=== PATIENT | female | born 1990 ===

== ENCOUNTER 2025-09-17 11:55 | Outpatient (CLI) | payer BC, SELFPAY | END 2025-09-17 11:56 | disposition home or self-care (01) | LOC: NFLDREF 11:57 | PROVIDERS: Visit Provider Obstetrics & Gynecology | DX: O46.91 Antepartum hemorrhage, unspecified, first trimester (principal) | CPT/HCPCS: 84702; 86850; 86900; 86901 ==

== ENCOUNTER 2025-09-21 08:49 | Outpatient (CLI) | payer BC, SELFPAY ==
--- NOTE | 2025-09-21 09:15 | CRLHL7_ITS ---
For Patients: As a result of the Century Cures Act, medical imaging exams and procedure reports are released immediately into your electronic medical record. You may view this report before your referring provider. If you have questions, please contact your health care provider. OB ULTRASOUND LESS THAN 14 WEEKS CLINICAL HISTORY: Viability. Cramping and light bleeding. TECHNIQUE: Grayscale and color Doppler ultrasound of the uterus and ovaries from a transabdominal and transvaginal approach. Transvaginal ultrasound of the pelvis was performed to better evaluate the genitourinary organs such as the ovaries and/or endometrium. FINDINGS: Imaging: TV. LMP: 08/10/2025. JACQUELYN by LMP: 05/17/2026. GA: 6 weeks 0 days. Previous US: No. CRL: Not visualized at this time FHR: N/A GEST SAC: 1.3 cm, appears WNL YOLK SAC: 3.3 mm, appears WNL. RIGHT OV: 2.8 x 1.6 x 1.3 cm LEFT OV: 3.4 x 1.6 x 2.5 cm. CL IMPRESSION: 1. Intrauterine gestational sac measures 1.3 cm, 6 weeks 1 day. Yolk sac is present measuring 3.3 mm. No pole. Follow-up in 11-14 days recommended. 2. Corpus luteal cyst left ovary measures 1.4 x 1.1 x 1.2 cm. Qasim Nelson M.D. Diagnostic Radiologist [email or web address] Transcribed: 2:31 am DW/Dictated by: Qasim Nelson MD @ 09/21/2025 1:49:00 PM (Electronically Signed)
== END 2025-09-21 08:50 | disposition home or self-care (01) ==
LOC: US 08:49
PROVIDERS: Visit Provider Obstetrics & Gynecology
DX: O20.9 Hemorrhage in early pregnancy, unspecified (principal); O34.81 Maternal care for other abnormalities of pelvic organs, first trimester; N83.12 Corpus luteum cyst of left ovary; Z3A.01 Less than 8 weeks gestation of pregnancy
CPT/HCPCS: 76817

== ENCOUNTER 2025-10-09 14:42 | Outpatient (CLI) | payer BC, SELFPAY ==
--- NOTE | 2025-10-09 15:00 | CRLHL7_ITS ---
For Patients: As a result of the Century Cures Act, medical imaging exams and procedure reports are released immediately into your electronic medical record. You may view this report before your referring provider. If you have questions, please contact your health care provider. OBSTETRICAL ULTRASOUND TRANSVAGINAL CLINICAL INDICATION: Follow-up dating and viability. LMP: 08/10/2025 JACQUELYN by LMP: 05/17/2026 Gestational age: 8 weeks 4 days PREVIOUS ULTRASOUND: 09/21/2025 TECHNIQUE: Real-time kline-scale imaging of the fetus was performed transvaginal. Transvaginal imaging was performed for better visualization of the endometrium and ovaries. FINDINGS: CRL: 1.8 cm, 8 weeks 2 days; JACQUELYN 05/19/2026 heart rate: 165 BPM Gestational sac: 4.2 cm, appears within normal limits Yolk sac: 3.6 mm, appears within normal limits Right ovary: Within normal limits; 4.4 x 1.6 x 1.2 cm Left ovary: Within normal limits; 4.9 x 2.9 x 2.9 cm, CL IMPRESSION: 1. Single living intrauterine measures 8 weeks 2 days with sonographic due date of 05/19/2026. 2. Corpus luteal cyst of left ovary measures 1.8 x 1.3 x 1.6 cm. 3. Fundal fibroid is present which measures 2.8 x 2.6 x 2.3 cm. QASIM PARKER M.D. Diagnostic Radiologist [email or web address] Transcribed: 4:[address]/Dictated by: Qasim Parker MD @ 10/09/2025 4:41:00 PM (Electronically Signed)
== END 2025-10-09 14:43 | disposition home or self-care (01) ==
LOC: US 14:43
PROVIDERS: Visit Provider Registered Nurse
DX: O34.81 Maternal care for other abnormalities of pelvic organs, first trimester (principal); N83.12 Corpus luteum cyst of left ovary; D25.9 Leiomyoma of uterus, unspecified; Z3A.08 8 weeks gestation of pregnancy
CPT/HCPCS: 76817

== ENCOUNTER 2025-11-05 08:17 | Outpatient (CLI) | payer BC, SELFPAY | END 2025-11-05 08:18 | disposition home or self-care (01) | PROVIDERS: Visit Provider Physician Assistant | DX: Z34.91 Encounter for supervision of normal pregnancy, unspecified, first trimester (principal); R74.8 Abnormal levels of other serum enzymes; E03.9 Hypothyroidism, unspecified | CPT/HCPCS: 82947; 84443; 84450; 84460; 87086 ==